=== PATIENT | male | born 1980 | race Caucasian/White ===

== ENCOUNTER 2016-10-24 11:20 | Outpatient (CLI) | payer OTHER | END 2016-10-24 11:21 | disposition home or self-care (01) | DX: G47.30 Sleep apnea, unspecified (principal); G47.8 Other sleep disorders; R06.83 Snoring; G47.10 Hypersomnia, unspecified; R51 Headache ==

== ENCOUNTER 2016-11-23 21:58 | Outpatient (CLI) | payer OTHER | END 2016-11-23 21:59 | disposition home or self-care (01) | DX: G47.33 Obstructive sleep apnea (adult) (pediatric) (principal); Z68.39 Body mass index [BMI] 39.0-39.9, adult ==

== ENCOUNTER 2016-12-12 14:52 | Outpatient (CLI) | payer OTHER | END 2016-12-12 14:53 | disposition home or self-care (01) | DX: G47.33 Obstructive sleep apnea (adult) (pediatric) (principal) ==

== ENCOUNTER 2016-12-15 20:02 | Outpatient (CLI) | payer OTHER | END 2016-12-15 20:03 | disposition home or self-care (01) | DX: G47.33 Obstructive sleep apnea (adult) (pediatric) (principal); G47.61 Periodic limb movement disorder; Z68.39 Body mass index [BMI] 39.0-39.9, adult ==

== ENCOUNTER 2017-02-06 15:10 | Outpatient (CLI) | payer OTHER | END 2017-02-06 15:11 | disposition home or self-care (01) | DX: G47.33 Obstructive sleep apnea (adult) (pediatric) (principal) ==

== ENCOUNTER 2018-05-14 13:07 | Outpatient (CLI) | payer OTHER | END 2018-05-14 13:08 | disposition home or self-care (01) | LOC: SC 13:07 | PROVIDERS: ATTEND Nurse Practitioner Family | DX: G47.33 Obstructive sleep apnea (adult) (pediatric) (principal) | CPT/HCPCS: 99212; 99214 ==

== ENCOUNTER 2020-06-22 12:49 | Outpatient (CLI) | payer OTHER ==
--- NOTE | 2020-06-22 13:35 | SLEEP CARE CONSULTATION ---
Information from patient questionnaire entered by Krystal Farnsworth. I have reviewed and concur with the information entered by Krystal Farnsworth. This document represents the service I personally performed and the decisions made by , Riana Piedra ARNP. History of Present Illness Service Date and Time: 06/22/2020 1249 Previous diagnosis: Very Severe, Obstructive Sleep Apnea-Hypopnea Syndrome AHI: 83.0 (in 2017) Reason for follow up: annual (last seen 2018) Equipment type: CPAP Equipment obtained from: [employer] (getting supplies as needed) Mask style: Full face Mask brand: Respironics Backup mask available: Yes (old mask) Last cushion change: 2 weeks ago Prior sleep studies: Yes Year and Where: 2016 - [facility] Type of Sleep Study: Polysomnography HPI additional information: CATINA BRYANT was diagnosed to have very severe, AHI 83.0, obstructive sleep apnea-hypopnea syndrome and returned today for CPAP therapy annual follow-up. CPAP Compliance Data - Data Reviewed with Patient Average duration of nightly device use: 8.95 Compliance rate %: 92.2 (180 days) Current pressure setting (cmH2O): 8-12 Humidity settin Heated hose settin Average residual AHI: 1.1 Average large leak: 2 min 6 sec Subjective Patient concerns: reports: dry mouth, nose, throat (seal on waterchamber is not functioning correctly with reduced humidity). denies: aerophagia, mask discomfort, air blowing in eyes, mask leak noise, condensation in mask/hose, nasal congestion, epistaxis, other Observed to snore while using device: No Current pressure setting perceived as: comfortable On therapy, patient: reports: sleeping better, awakening more refreshed, being more awake and alert during the day, more rested overall. denies: drowsiness while driving Initial Dougherty Sleepiness Scale score: 17 (in 2017) Current Dougherty Sleepiness Scale score: 6 Allergies and Home Medications Drug allergies reviewed: Yes (NKDA) Home medication list reviewed: Yes (no changes) Review of Systems Review of systems same as previous: Yes (no changes) Physical Exam Heart Rate: 86 O2 Saturation: 96 Height: 6 ft 3 in Weight: 357 lb Body Mass Index: 44.6 BMI Classification: Morbidly Obese Impression and Plan 1. Obstructive Sleep Apnea-Hypopnea Syndrome, very severe, with good treatment compliance and good apnea control. On CPAP therapy, the patient has better sleep quality and is more rested overall. The patients CPAP is 3 years old and of reasonable use. In addition, the water chamber is not sealing well or the humidifier is not working well, a sign of malfunction. Thus, I will write a prescription to have the CPAP serviced or checked for malfunction. 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 He states he checked into it and there is a battery backup for his brand of machine. I will write for a battery back up but cannot say how much (if any) of the cost his insurance will cover. He voiced understanding and agreement with plan. Patient's apnea severity and rationale for treatment to reduce apnea, improve sleep quality and reduce cardiovascular and cerebrovascular events was reviewed. I also reviewed the benefit of consistent device use of CPAP for hypertension and depression/anxiety. * Continue auto CPAP pressure at 8-12 cmH2O * Check the machine for malfunction * Write an order for a battery backup * Notify me if snoring with mask or feeling that the pressure is too much or too little * Attempt to lose weight * Call this office if any problems using CPAP * Return for follow up in 1 year, or sooner if concerns arise Visit Type: In Office Time Spent with Patient (minutes): 17 Provider Statement: I spent 100% of the Face to Face Visit with the patient with greater than 50% spent counseling the patient and coordination of care.
== END 2020-06-22 12:50 | disposition home or self-care (01) ==
LOC: SC 12:49
PROVIDERS: ATTEND Nurse Practitioner Family
DX: G47.33 Obstructive sleep apnea (adult) (pediatric) (principal); E66.01 Morbid (severe) obesity due to excess calories; Z68.41 Body mass index [BMI] 40.0-44.9, adult
CPT/HCPCS: 99212; 99213